=== PATIENT | male | born 1995 | race Caucasian/White ===

== ENCOUNTER 2024-06-18 15:03 | Emergency (ER) | payer SELFPAY ==
[2024-06-18 15:14] VITALS: BP 157/96
--- NOTE | 2024-06-18 15:38 | ED.SKININJ ---
HPI-Injury
General
Chief Complaint: Skin Surface Trauma
Source: patient
Exam Limitations: none
Time Seen by Provider: 06/18/24 15:21
History of Present Illness-Injury
Initial Injury comments:
28yo right hand dominant male presenting with his significant other for evaluation after a hand injury. Patient was using a box lidder about 2 hours ago and he accidentally cut himself in the left thumb and middle finger. His friend is a nurse who
told him that he cut an artery. Wound was cleaned and dressed and he was told to go to the ED for evaluation. Unknown last Tdap.
Past History
Past History
ED Past Medical History: None
ED Past Surgical History: Orthopedic
Social History
Tobacco: Non-smoker
Alcohol: Occasional
Drug: None
Personal: Single
Living: with family
Phy Exam
General Physical Exam
General Presentation: well appearing and no apparent distress
General age: appears stated age
General Skin: warm and dry
General Habitus: normal
General Mental: alert
ENT Exam
ENT Exam: normocephalic
Pulmonary Exam
Pulmonary Exam: no respiratory distress
Neurological Exam
Neurological Exam: alert
Musculoskeletal Exam
Musculoskeletal Exam: other (Avulsion noted to the pulp of the L thumb extending into subcutaneous tissue. No exposed tendon/bone. No active bleeding. ROM of IP and MCP joint intact. Cap refill and sensation intact at fingertip. )
Skin Exam
Skin Exam: warm/dry and other (There is a minor laceration to the dorsal aspect of the middle finger lateral to the nailfold that is well approximated and does not require suture repair. )
Psychiatric Exam
Psychiatric Exam: normal mood/affect
Course
Orders/Labs/Results
Orders:
Orders
06/18/24 15:27
Tetanus/Diphth/Acelpertussis [Adacel] 0.5 ml IM .ONCE ONE
06/18/24 15:37
Oxycodone/Acetaminophen [Percocet 5/325] 1 tablet PO NOW STA
CR Hand - Left Min 3 Views Urgent
Comment:
Reason For Exam: Thumb and middle finger lacerations
06/18/24 16:46
Thumb Spica Left-Treatment ONCE
Vital Signs
Initial and Last Documented VS:
Initial Vital Signs
Temp Pulse Resp BP Pulse Ox
97.5 F 58 18 157/96 98
06/18/24 15:14 06/18/24 15:14 06/18/24 15:14 06/18/24 15:14 06/18/24 15:14
Last Documented Vital Signs
Temp Pulse Resp BP Pulse Ox
97.5 F 58 18 157/96 98
06/18/24 15:14 06/18/24 15:14 06/18/24 15:14 06/18/24 15:14 06/18/24 15:14
MDM/Problems Addressed
Differential Diagnosis Includes:
28yoM here with a L hand injury. Accidental cut his L thumb with a box lidder. Avulsed skin noted to the pulp of the L thumb with exposed subcutaneous tissue. ROM intact and digit is neurovascularly intact. There is also a minor laceration to the L
middle finger. Differential diagnosis includes but is not limited to: laceration, fracture
Initial ED plan: Wounds irrigated at bedside. No areas amenable to suture repair. Will have nursing dress wounds, update Tdap, and obtain hand x-rays. Dose of Percocet ordered for pain.
*Critical Care Note
Total Time (30-74mins, 75-104mins- exclusive of procedures): Not Applicable
Update Note
Update Note:
X-rays are negative for fracture. Wounds dressed and thumb spica brace given to help with healing. Home wound care discussed. Advised f/u with hand surgery and ED return precautions discussed including signs of infection. Patient expressed
understanding and he was discharged in stable condition.
ED Attending Note
-
Portions of this chart may have been created with voice recognition software.� Occasional wrong word or��sound alike� substitutions may have occurred due to the inherent limitations of voice recognition software.
Discharge Plan
Departure
Patient Disposition: Home (Routine Discharge)
Date of Disposition: 06/18/24
Time of Disposition: 16:46
Patient with high blood pressure during this ER visit?: Yes
Discharge Problem:
Avulsion of skin of left thumb
Instructions: Taking care of cuts, scrapes, and puncture wounds
Prescriptions:
No Action
montelukast 10 MG tablet
10 mg PO HS
Referrals:
Kenneth Cooley MD [Active] -
Activity Restrictions/Additional Instructions:
Keep wounds clean and dry and change dressings daily.
Please follow-up with hand surgery. Return to the ER with any uncontrolled bleeding or signs of infection.
Interventions
Interventions:
*Risk Screen - Suicide Last Done: 06/18/24 17:29
*General Assessment Last Done: 06/18/24 17:29
*Neglect/Abuse Screening Last Done: 06/18/24 17:29
ED- Fall Risk Assessment Last Done: 06/18/24 17:29
*ED COVID-19 Vaccine History Last Done: 06/18/24 17:29
*Nursing Disposition Last Done: 06/18/24 17:40
ED-Skin Assessment Last Done: 06/18/24 17:29
Discharge Date and Time
Discharge Date/Time: 06/18/24 17:10
Print Language: INDONESIAN
[2024-06-18] MEDS: PERCOCET 5/325 1 TABLET PO (15:48)
[2024-06-18] MEDS: ADACEL 0.5 ML IM (15:49)
== END 2024-06-18 17:10 | disposition home or self-care (01) ==
LOC: EMR 15:03
PROVIDERS: EMERGENCY PHYSICIAN Emergency Medicine; FAMILY PHYSICIAN Family Medicine
DX: S61.002A Unspecified open wound of left thumb without damage to nail, initial encounter (principal); W26.0XXA Contact with knife, initial encounter; R03.0 Elevated blood-pressure reading, without diagnosis of hypertension; Z23 Encounter for immunization
CPT/HCPCS: 99283; 90471; 73130; 90715